=== PATIENT | male | born 2000 | race Two or more races ===

== ENCOUNTER 2019-06-03 11:25 | Emergency (ER) | payer OTHER ==
[~2019-06-03] VITALS: Ht 172.7 cm; Wt 57.2 kg
[2019-06-03 11:36] VITALS: Ht 172.7 cm; Wt 57.2 kg
[2019-06-03 13:41] VITALS: BP 103/60
== END 2019-06-03 13:41 | disposition home or self-care (01) ==
LOC: ED 11:25
DX: R07.89 Other chest pain (principal)
CPT/HCPCS: J1885; Q0092